=== PATIENT | female | born 1990 | race Caucasian/White ===

== ENCOUNTER → 2020-12-25 | Outpatient (CLI) | payer OTHER ==
--- NOTE | 2020-12-25 16:49 | RAD ---
EXAM: OB ULTRASOUND, > 14 WEEKS HISTORY: Uterine size and dates discrepancy. COMPARISON: None. TECHNIQUE: Multiple grayscale images, color Doppler, and M-mode images of the uterus are obtained. FINDINGS: There is a single intrauterine gestation in variable presentation. The placenta is posterior in locat ion without evidence of placenta previa. The amount of amniotic fluid appears appropriate. Amniotic fluid index is 10.5 cm. Cervical length is 5.5 cm. Biometrical data: BPD = 3.94 cm for 18 weeks 0 days. HC = 14.53 cm for 17 weeks 5 days. AC = 12.52 cm for 18 weeks 1 days. FL = 2.5 cm for 17 weeks 4 days. HC/AC ratio = 1.16. Overall, the estimated sonographic gestational age is 17 weeks and 6 days for an estimated date of de livery of 05/29/2020. The estimated date of delivery provided by the last menstrual period is . Estimated weight is 213 grams. A 4 chamber heart is identified with positive cardiac activity. The estimated heart rate is 149 beats per minute. Bilateral upper and lower extremities are identified. There is a three-vessel cord with cord insertion visualized. stomach and urinary bladder are identified. Both kidneys are seen. The spine and brain are unremarkable. No obvious anatomic abnormalities are identified. The maternal adnexal regions are unremarkable. IMPRESSION: Single live intrauterine gestation in variable presentation with a normal heart rate and gestational age patient ultrasound measurements of 17 weeks and 6 days. The estimated gestational age based on LM P is 17 weeks and 5 days. Note is made that evaluation for anatomy is slightly limited due to r elative early gestation. A formal anatomy survey can be performed at approximately 20 weeks ges tation. Electronically signed by: Rona Mendoza MD (12/25/2020 4:47 PM) [id number]
== END ==
LOC: US 10:49
PROVIDERS: ATTEND Obstetrics & Gynecology
DX: O26.842 Uterine size-date discrepancy, second trimester (principal); Z3A.17 17 weeks gestation of pregnancy
CPT/HCPCS: 76805

== ENCOUNTER → 2021-03-09 | Outpatient (CLI) | payer OTHER ==
[2021-03-09 10:14] LABS: BASO % 0 % (0-3); EOS # 0.1 x10^3/uL (0.0-0.7); EOS % 1 % (0-3); HEMATOCRIT 32.1 % (36.0-47.0); HEMOGLOBIN 11.3 g/dL (12.0-15.5); LYMPH # 1.9 x10^3/uL (1.0-4.8); LYMPH % 17 % (24-48); MEAN CORPUSCULAR HEMOGLOBIN 32 pg (25-35); MEAN CORPUSCULAR HGB CONC 35 g/dL (31-37); MEAN CORPUSCULAR VOLUME 91 fL (79-100); MONO # 0.7 x10^3/uL (0.0-1.1); MONO % 6 % (0-9); NEUT # 8.8 x10^3/uL (1.8-7.7); NEUT % 77 % (31-73); PLATELET COUNT 218 x10^3/uL (140-400); RED BLOOD COUNT 3.54 x10^6/uL (3.50-5.40); RED CELL DISTRIBUTION WIDTH 13.3 % (11.5-14.5); WHITE BLOOD COUNT 11.5 x10^3/uL (4.0-11.0)
[2021-03-09 11:05] LABS: % BANDS 3 % (0-9); % BASOS 1 % (0-3); % LYMPHS 16 % (24-48); % METAS 1 % (0-0); % MONOS 5 % (0-10); % MYELOS 1 % (0-0); % SEGS 73 % (35-66); PLT ESTIMATE ADEQUATE (ADEQUATE)
[2021-03-09 11:06] LABS: POLYCHROMASIA SLIGHT
== END ==
LOC: LAB 09:29
PROVIDERS: ATTEND Obstetrics & Gynecology
DX: Z67.91 Unspecified blood type, Rh negative (principal)
CPT/HCPCS: 36415; 82950; 85007; 85025; 86850; 86900; 86901; 96372